=== PATIENT | female | born 1985 | race Caucasian/White ===

== ENCOUNTER 2022-05-03 22:53 | Inpatient (IN) ==
[2022-05-03] MEDS ORDERED: CARBOPROST TROMETHAMINE 250 MCG/ML AMP IM PRN (23:12)
[2022-05-03] MEDS ORDERED: METHYLERGONOVINE 0.2 MG/1 ML AMP IM PRN (23:12)
[2022-05-03] MEDS ORDERED: TRANEXAMIC ACID 1,000 MG in SODIUM CHLORIDE 0.9% 100 ML IV PRN (23:12)
[2022-05-03] MEDS ORDERED: OXYTOCIN/LR 20 UNIT/1,000 ML BAG IV PRN (23:12)
[2022-05-03] MEDS ORDERED: DINOPROSTONE 10 MG VAG.INSERT VAG PRN (23:12)
[2022-05-03] MEDS ORDERED: miSOPROStoL 200 MCG TABLET RECTAL PRN (23:12)
[2022-05-03] MEDS ORDERED: ONDANSETRON 4 MG/2 ML VIAL IV PRN (23:12)
[2022-05-03] MEDS ORDERED: BUTORPHANOL 2 MG/ML VIAL IV PRN (23:12)
[2022-05-04 00:13] LABS: Alanine Aminotransferase 16 U/L (13-56); Albumin 2.5 G/DL (3.4-5.0); Alkaline Phosphatase 135 U/L (45-117); Aspartate Amino Transferase 18 U/L (0-37); Bilirubin,Total < 0.39 MG/DL (0.20-1.00); Blood Urea Nitrogen 8 MG/DL (7-18); Calcium 8.9 MG/DL (8.5-10.1); Carbon Dioxide 19 MMOL/L (21-32); Chloride 108 MMOL/L (98-107); Glucose 90 MG/DL (74-106); Osmolality,Calculated 270.8 MOS/KG (273-304); Potassium 3.7 MMOL/L (3.5-5.1); Sodium 137 MMOL/L (136-145); Total Protein 6.9 G/DL (6.4-8.2)
[2022-05-04 00:34] LABS: Basophils % 0.2 % (0.0-0.8); Eosinophils # 0.1 10*3/uL (0.0-0.87); Eosinophils % 0.8 % (0.00-10.9); Hematocrit 34.6 VOL% (35.7-47.0); Hemoglobin 10.9 GM/DL (12.0-16.0); Immature Granulocytes % 0.9 %; Immature Granulocytes Absolute 0.08 #; Lymphocytes # 2.8 10*3/uL (1.4-4.0); Lymphocytes % 32.7 % (21.3-54.2); Mean Corpuscular HGB Conc 31.5 GM/DL (32-36); Mean Corpuscular Volume 76.5 FL (87-102); Mean Platelet Volume 11.2 FL (9.6-12.0); Monocytes # 0.6 10*3/uL (0.11-0.8); Monocytes % 7.4 % (1.7-12.7); Platelet Count 284 T/CUMM (130-400); Red Blood Count 4.52 MC/CUMM (3.8-5.5); Red Cell Distribution Width 14.9 % (9.3-17.3); White Blood Count 8.6 T/CUMM (4-12)
[2022-05-04 00:41] LABS: Bacteria,Urine Many /HPF (Few); Mucus,Urine Occasional /LPF (Occasional); Squamous Epithelial Cell,Urine Occasional /HPF (0-10)
[2022-05-04 00:42] LABS: Bilirubin,Urine Negative (Negative); Blood, Urine Negative (Negative); Glucose,Urine (UA) Negative (Negative); Ketones,Urine Negative (Negative); Nitrite,Urine Negative (Negative); Protein,Urine Negative (Negative); Urine Appearance CLOUDY (Clear); Urine Color Yellow (Yellow); Urine Urobilinogen 0.2 eU/dL (<2.0); Urine pH 5.5 (4.5-8.0)
[2022-05-04 03:18] LABS: HIV Antigen/Antibody Result Nonreactive (Nonreactive); Hepatitis B Surface Ag Quant < 0.10 Index; Hepatitis B Surface Ag Result Non-Reactive (NonReactive); Rubella Antibody IgG Result Reactive (NonReactive)
[2022-05-04] MEDS: LACTATED RINGERS 1,000 ML IV PRN ×3 (08:54→16:08)
[2022-05-04] MEDS ORDERED: PROMETHAZINE 25 MG/1 ML VIAL IM ONE (08:56)
[2022-05-04] MEDS ORDERED: ePHEDrine 50 MG/ML VIAL IV PRN (08:56)
[2022-05-04] MEDS ORDERED: diphenhydrAMINE 50 MG/1 ML VIAL IV PRN ×2 (08:56)
[2022-05-04] MEDS ORDERED: ONDANSETRON 4 MG/2 ML VIAL IV ONE (08:56)
[2022-05-04] MEDS ORDERED: hydrOXYzine HCL 25 MG/1 ML VIAL IM PRN (08:56)
[2022-05-04] MEDS ORDERED: fentaNYL 2 MCG/ROPIV 0.2% EPID 100 ML EPIDURAL SCH (09:00)
[2022-05-04] MEDS ORDERED: FAMOTIDINE 20 MG/2 ML VIAL IV ONE (09:01)
[2022-05-04] MEDS ORDERED: NALOXONE 0.4 MG/ML VIAL IV PRN (09:01)
[2022-05-04] MEDS ORDERED: CITRIC ACID/SODIUM CITRATE 30 ML UDCUP PO ONE (09:01)
[2022-05-04] MEDS ORDERED: OXYTOCIN/LR 20 UNIT/1,000 ML BAG IV SCH (14:30)
[2022-05-04] MEDS ORDERED: SODIUM CHLORIDE 0.9% 500 ML IV ONE (16:09)
[2022-05-04] MEDS ORDERED: ceFAZolin 2,000 MG/50 ML DUPLEX IV ONE (17:30)
[2022-05-04] MEDS ORDERED: LACTATED RINGERS 1,000 ML IV SCH ×2 (17:30→19:30)
[2022-05-04] MEDS ORDERED: miSOPROStoL 200 MCG TABLET ONE (17:34)
[2022-05-04] MEDS ORDERED: TRANEXAMIC ACID 1,000 MG/10 ML VIAL ONE (17:34)
[2022-05-04] MEDS ORDERED: OXYTOCIN/LR 20 UNIT/1,000 ML BAG IV ONE ×2 (17:34→19:05)
[2022-05-04] MEDS ORDERED: SODIUM CHLORIDE 0.9% 0 ML IV ONE (17:34)
[2022-05-04] MEDS ORDERED: METHYLERGONOVINE 0.2 MG/1 ML AMP ONE (17:35)
[2022-05-04] MEDS ORDERED: CARBOPROST TROMETHAMINE 250 MCG/ML AMP IM ONE (17:35)
[2022-05-04] MEDS ORDERED: KETAMINE 500 MG/10 ML VIAL ONE (17:59)
[2022-05-04] MEDS ORDERED: ePHEDrine 50 MG/ML VIAL ONE (18:12)
[2022-05-04] MEDS ORDERED: ceFAZolin 1,000 MG VIAL ONE (18:13)
[2022-05-04 18:21] LABS: Cord Arterial Blood HCO3 19.4 MMOL/L
[2022-05-04] MEDS ORDERED: buprenorphine HCL 0.3 MG/ML VIAL ONE (18:21)
[2022-05-04 18:24] LABS: Cord Venous Blood HCO3 20.1 MMOL/L; Cord Venous Blood PO2 < 17
[2022-05-04] MEDS ORDERED: PHENYLEPHRINE 1 MG/10 ML SYRINGE IV ONE (18:43)
[2022-05-04] MEDS ORDERED: SIMETHICONE CHEW 80 MG TABLET PO PRN (19:05)
[2022-05-04] MEDS ORDERED: MAGNESIUM HYDROXIDE SUSP 30 ML UDCUP PO PRN (19:05)
[2022-05-04] MEDS ORDERED: RHO(D) IMMUNE GLOBULIN 300 MCG SYRINGE IM ONE (19:05)
[2022-05-04] MEDS ORDERED: ONDANSETRON 4 MG/2 ML VIAL IV PRN (19:05)
[2022-05-04] MEDS ORDERED: ACETAMINOPHEN 325 MG TABLET PO PRN (19:05)
[2022-05-04] MEDS ORDERED: KETOROLAC 30 MG/1 ML VIAL IV SCH (20:00)
[2022-05-04] MEDS: ACETAMINOPHEN 500 MG TABLET PO PRN (23:00)
[2022-05-04] MEDS: KETOROLAC 30 MG/1 ML VIAL IV SCH (23:00)
[2022-05-04] MEDS: DOCUSATE SODIUM 100 MG CAPSULE PO SCH (23:00)
[2022-05-05] MEDS: ACETAMINOPHEN 500 MG TABLET PO PRN (05:00)
[2022-05-05] MEDS: KETOROLAC 30 MG/1 ML VIAL IV SCH ×2 (05:00→16:05)
[2022-05-05] MEDS: LEVOTHYROXINE 50 MCG TABLET PO SCH (06:30)
[2022-05-05 09:13] LABS: Basophils % 0.2 % (0.0-0.8); Eosinophils % 0.3 % (0.00-10.9); Hematocrit 25.8 VOL% (35.7-47.0); Hemoglobin 8.2 GM/DL (12.0-16.0); Immature Granulocytes % 0.4 %; Immature Granulocytes Absolute 0.05 #; Lymphocytes # 1.6 10*3/uL (1.4-4.0); Lymphocytes % 13.8 % (21.3-54.2); Mean Corpuscular HGB Conc 31.8 GM/DL (32-36); Mean Corpuscular Volume 75.9 FL (87-102); Mean Platelet Volume 10.3 FL (9.6-12.0); Monocytes # 0.7 10*3/uL (0.11-0.8); Monocytes % 6.1 % (1.7-12.7); Neutrophils % 79.2 % (38.7-73.9); Platelet Count 204 T/CUMM (130-400); Red Cell Distribution Width 15.2 % (9.3-17.3); White Blood Count 11.5 T/CUMM (4-12)
[2022-05-05] MEDS: MULTIVITAMIN (PRENATAL) TABLET PO SCH (09:41)
[2022-05-05] MEDS: DOCUSATE SODIUM 100 MG CAPSULE PO SCH ×2 (09:41→21:47)
[2022-05-05] MEDS: IBUPROFEN 800 MG TABLET PO PRN (09:42)
[2022-05-06] MEDS: IBUPROFEN 800 MG TABLET PO PRN ×2 (00:26→08:20)
[2022-05-06] MEDS: DOCUSATE SODIUM 100 MG CAPSULE PO SCH ×2 (07:50→08:01)
[2022-05-06] MEDS: MULTIVITAMIN (PRENATAL) TABLET PO SCH ×2 (07:50→08:01)
[2022-05-06] MEDS: LEVOTHYROXINE 50 MCG TABLET PO SCH (07:50)
[2022-05-06 12:01] VITALS: BP 120/59
== END 2022-05-06 11:30 | disposition home or self-care (01) | DRG 788 ==
LOC: N.LD 22:53 → N.OB 05-04 22:01
PROVIDERS: ADMIT Obstetrics & Gynecology; ATTEND Obstetrics & Gynecology
PROC: LDCSECT (ICD-10-PCS; 2022-05-04 17:00)